=== PATIENT | male | born 1980 | race African-American/Black ===

== ENCOUNTER 2021-08-14 18:55 | Emergency (ER) | END 2021-08-14 20:15 | disposition home or self-care (01) | LOC: ERS 18:55 | DX: S60.222A Contusion of left hand, initial encounter (principal); X58.XXXA Exposure to other specified factors, initial encounter ==

== ENCOUNTER 2022-04-09 06:36 | Emergency (ER) | payer OTHER, SELFPAY | END 2022-04-09 08:53 | disposition home or self-care (01) | LOC: ERS 06:36 | DX: S76.111A Strain of right quadriceps muscle, fascia and tendon, initial encounter (principal); K40.90 Unilateral inguinal hernia, without obstruction or gangrene, not specified as recurrent; X58.XXXA Exposure to other specified factors, initial encounter; Y92.69 Other specified industrial and construction area as the place of occurrence of the external cause | CPT/HCPCS: 99283 ==